=== PATIENT | male | born 1975 ===

== ENCOUNTER 2018-03-04 00:19 | Emergency (ER) | payer OTHER ==
[2018-03-04 00:30] VITALS: BP 159/78; PULSE 89; RESP 18; TEMP 97.9; O2SAT 98
[2018-03-04] MEDS ORDERED: Lidocaine 5% Patch TD STA (00:38)
[2018-03-04] MEDS ORDERED: Lidocaine 5% Patch TD ONE (00:43)
--- NOTE | 2018-03-04 00:58 | C.PDOC ---
History Of Present Illness 42 year old male presents to the ED c/o neck pain for the past 3-4 days. Patient reports his pain worsened tonight, pain worsened when turning head towards right side. Patient was seen at an Urgent Care earlier today and prescribed Toradol and Flexeril with only little relief. Patient denies injury, fall, trauma, bowel/bladder incontinence, headache, visual changes, nausea, vomit, dizziness, weakness, numbness. Time Seen by Provider: 03/04/18 00:23 Chief Complaint (Nursing): Upper Extremity Problem/Injury History Per: Patient History/Exam Limitations: no limitations Onset/Duration Of Symptoms: Days (3/4) Current Symptoms Are (Timing): Still Present Quality: "Pain" Exacerbating Factor(s): Movement Recent travel outside of the [place]: No Additional History Per: Patient Past Medical History Reviewed: Historical Data, Nursing Documentation, Vital Signs Vital Signs: Last Vital Signs Temp 97.9 F 03/04/18 00:25 Pulse 89 03/04/18 00:25 Resp 18 03/04/18 00:25 BP 159/78 H 03/04/18 00:25 Pulse Ox 98 03/04/18 00:25 - Medical History PMH: Asthma (childhood) Surgical History: No Surg Hx Family History: States: Unknown Family Hx - Social History Hx Alcohol Use: No Hx Substance Use: No Review Of Systems Constitutional: Negative for: Fever, Chills Cardiovascular: Negative for: Chest Pain Respiratory: Negative for: Cough, Shortness of Breath Gastrointestinal: Negative for: Nausea, Vomiting, Abdominal Pain Musculoskeletal: Positive for: Neck Pain Skin: Negative for: Rash Neurological: Negative for: Weakness, Numbness, Headache Physical Exam - Physical Exam Appears: Non-toxic, No Acute Distress Skin: Normal Color, Warm, No Rash Head: Atraumatic, Normacephalic Eye(s): bilateral: Normal Inspection, PERRL, EOMI Oral Mucosa: Moist Throat: No Erythema, No Exudate Neck: Normal ROM, Trachea Midline, No Midline Cervical Tenderness, Paracervical Tenderness (right ), Supple Chest: Symmetrical Cardiovascular: Rhythm Regular, No Friction Rub, No Murmur Respiratory: Normal Breath Sounds, No Rales, No Rhonchi, No Wheezing Extremity: Normal ROM, No Tenderness, No Swelling Neurological/Psych: Oriented x3, Normal Speech, Normal Cognition Gait: Steady ED Course And Treatment O2 Sat by Pulse Oximetry: 98 (ON RA) Pulse Ox Interpretation: Normal Medical Decision Making Medical Decision Making: Plan: * Valium 5 mg PO * Lidoderm TD * C Spine XRay On re-exam, the patient reports improvement of symptoms. Lungs are CTA, heart is RRR, abdomen is soft, non-tender and the patient is tolerating PO well. Ambulatory in the ED with steady gait. Disposition - Disposition Referrals: Rory Polanco MD [Non-Staff] - Disposition: HOME/ ROUTINE Disposition Time: 01:03 Condition: STABLE Additional Instructions: Follow up with the medical doctor within 1-2 days. Return if worsened. 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 - Scribe Statement The provider has reviewed the documentation as recorded by the Scribe Tres Gordon All medical record entries made by the Scribe were at my direction and personally dictated by me. I have reviewed the chart and agree that the record accurately reflects my personal performance of the history, physical exam, medical decision making, and the department course for this patient. I have also personally directed, reviewed, and agree with the discharge instructions and disposition.
--- NOTE | 2018-03-04 01:03 | C.PDOC ---
Time Seen by Provider: 03/04/18 00:23 Chief Complaint (Nursing): Upper Extremity Problem/Injury Past Medical History Vital Signs: Last Vital Signs Temp 97.9 F 03/04/18 00:25 Pulse 89 03/04/18 00:25 Resp 18 03/04/18 00:25 BP 159/78 H 03/04/18 00:25 Pulse Ox 98 03/04/18 00:25 - Medical History PMH: Asthma (childhood) - Social History Hx Alcohol Use: No Hx Substance Use: No ED Course And Treatment O2 Sat by Pulse Oximetry: 98 Disposition - Disposition
--- NOTE | 2018-03-04 09:59 | RAD ---
Date of service: 03/04/2018 PROCEDURE: Cervical Spine Radiographs. HISTORY: Pain. COMPARISON: None available. FINDINGS: BONES: Vertebral bodies are maintained in height. Please note that the 7th cervical vertebra is not adequately visualize in the lateral projection. There is straightening of the normal lordotic curvature of the cervical spine indicative of possible muscular spasm. There is no listhesis. The atlantoaxial articulation and odontoid process are intact. DISC SPACES: There narrowing of the C5-6 intervertebral disc space consistent with degenerative disc disease. Anterior osteophytes are seen about the narrowed disc space. The remaining intervertebral disc spaces are maintained in height. SOFT TISSUES: Normal. No prevertebral soft tissue swelling. OTHER FINDINGS: None. IMPRESSION: Possible muscular spasm. No fracture/dislocation. Degenerative disc disease at C5-6. Limited evaluation of C7 vertebra.
== END 2018-03-04 01:12 | disposition home or self-care (01) ==
LOC: C.ER 00:19
DX: M43.6 Torticollis (principal)